=== PATIENT | male | born 2000 | race Caucasian/White ===

== ENCOUNTER 2019-06-15 17:31 | Emergency (ER) | payer BC ==
[2019-06-15 17:48] VITALS: BP 137/88; PULSE 84; O2SAT 97
--- NOTE | 2019-06-15 17:51 | ERPHSYRPT ---
- History of Present Illness Time Seen by Provider: 06/15/19 17:38 Source: patient, family, old records Exam Limitations: no limitations Patient Subjective Stated Complaint: states working today at [employer] in [employer] and got splinter in left hand while taking wire off a wooden spool. was unable to get it out. Triage Nursing Assessment: ambulated to room per self. skin w/d, color normal. has puncture wound to palm surface of left hand. no bleeding noted at this time. small dark area noted around puncture wound. 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 IT IS WOOD. LAST TDAP? NO FEVER/REDNESS/SWELLING/PUS. PMHX ASTHMA PSHX DENIES MEDS REVIEWED ALL NKDA DENIES TOB/ETOH/ILLICITS FHX NON CONTRIB EMPLOYED Allergies/Adverse Reactions: No Known Drug Allergies Allergy (Unverified 06/15/19 17:41) Home Medications: Cetirizine HCl [Zyrtec] 10 mg PO DAILY 06/15/19 [History] Montelukast Sodium 10 mg [Singulair 10 MG] 10 mg PO DAILY 06/15/19 [History] Hx Tetanus, Diphtheria Vaccination/Date Given: Yes Hx Influenza Vaccination/Date Given: No Hx Pneumococcal Vaccination/Date Given: No - Review of Systems Constitutional: No Symptoms, No Fever, No Chills, No Fatigue, No Lethargy, No Malaise, No Night Sweats, No Weakness, No Weight Loss Eyes: No Symptoms, No Discharge, No Eye Pain, No Eye Redness, No Itchy, No Photophobia, No Tearing, No Vision Changes, No Double Vision, No Foreign Body Sensation Ears, Nose, & Throat: No Symptoms, No Ear Pain, No Ear Discharge, No Hearing Changes, No Tinnitus, No Nose Congestion, No Nose Discharge, No Epistaxis, No Mouth Pain, No Mouth Swelling, No Throat Pain, No Throat Swelling, No Hoarse, No Painful Swallowing, No Stridor Respiratory: No Symptoms, No Cough, No Cyanosis, No Dyspnea, No Dyspnea on Exertion (DOLL), No Stridor, No Wheezing Cardiac: No Symptoms, No Chest Pain, No Edema, No Palpitations, No Syncope, No Orthopnea Abdominal/Gastrointestinal: No Symptoms, No Abdominal Pain, No Nausea, No Vomiting, No Diarrhea, No Constipation, No Hematemesis, No Hematochezia, No Melena, No Dysphagia, No Appetite Changes Genitourinary Symptoms: No Symptoms, No Dysuria, No Frequency, No Hematuria, No Hesitancy, No Incontinence, No Urgency, No Urinary Retention, No Flank Pain Musculoskeletal: No Symptoms, No Arthralgias, No Back Pain, No Neck Pain, No Deformity, No Fall, No Injury, No Joint Redness, No Joint Pain, No Joint Swelling, No Myalgias Skin: No Symptoms, Other (SPLINTER), No Cellulitis, No Decubiti, No Induration, No Pruritis, No Rash, No Skin Lesions, No Dryness Neurological: No Symptoms, No Dizziness, No Focal Weakness, No Gait Changes, No Headache, No Irritability, No Lethargy, No Paralysis, No Parasthesia, No Seizure , No Sensory Changes, No Speech Changes, No Tics, No Tremors, No Vertigo Psychological: No Symptoms, No Alcohol Abuse, No Drug Abuse, No Anxiety, No Depression, No Suicidal Ideations, No Homicidal Ideations, No Emotional Lability , No Hallucinations, No Memory Loss, No Mood Changes Endocrine: No Symptoms, No Polyuria, No Polydipsia, No Hair Changes, No Cold Intolerance, No Excessive Sweating, No Goiter Hematologic/Lymphatic: No Symptoms, No Anemia, No Blood Clots, No Easy Bleeding , No Gum Bleeding, No Easy Bruising, No Adenopathy Immunological/Allergic: No Symptoms All Other Systems: Reviewed and Negative - Past Medical History Pertinent Past Medical History: Yes Respiratory History: Asthma - Past Surgical History Past Surgical History: Yes Other Surgical History: tubes in ears - Social History Smoking Status: Never smoker Exposure to second hand smoke: No Drug Use: none Patient Lives Alone: No - Nursing Vital Signs Nursing Vital Signs: Initial Vital Signs Temperature 98 F 06/15/19 17:33 Pulse Rate 69 06/15/19 17:33 Respiratory Rate 20 06/15/19 17:33 Blood Pressure 137/88 06/15/19 17:33 O2 Sat by Pulse Oximetry 96 06/15/19 17:33 Pain Scale Pain Intensity 5 - Physical Exam General Appearance: no apparent distress, alert Eye Exam: PERRL/EOMI, eyes nml inspection, other (fundi normal andrew), No scleral icterus, No pale conjunctivae, No photophobia, No EOM palsy/anisocoria Ears, Nose, Throat Exam: normal ENT inspection, TMs normal, pharynx normal, TM abnormal (L), other (uvula midline, floor of mouth soft), No moist mucous membranes, No dry mucous membranes, No TM abnormal (R), No pharyngeal erythema, No tonsillar exudate Neck Exam: normal inspection, non-tender, supple, full range of motion, No meningismus, No mass, No Brudzinski, No Kernig's, No carotid bruit, No JVD, No limited range of motion, No lymphadenopathy, No midline tenderness, No thyromegaly Respiratory Exam: normal breath sounds, lungs clear, airway intact, No chest tenderness, No respiratory distress, No diminished breath sounds, No accessory muscle use, No prolonged expirations, No crackles/rales, No rhonchi, No wheezing , No stridor, No pleural rub Cardiovascular Exam: regular rate/rhythm, normal heart sounds, normal peripheral pulses, capillary refill <2 sec, No murmur, No friction rub, No gallop, No tachycardia, No bradycardia, No irregular, No capillary refill 2-3 sec, No capillary refill >3 sec, No edema, No pulse deficit Gastrointestinal/Abdomen Exam: soft, normal bowel sounds, No tenderness, No distention, No mass, No guarding, No ecchymosis, No pulsatile mass, No rebound, No hernia, No hepatomegaly, No organomegaly, No splenomegaly, No bruit Male Genitalia Exam: normal genitalia Rectal Exam: deferred Back Exam: normal inspection, normal range of motion, other (neg slr andrew, no sacral anesthesia, dtr 2/4 andrew patella), No CVA tenderness, No vertebral tenderness, No rash, No decreased range of motion, No muscle spasm, No point tenderness Extremity Exam: normal inspection, normal range of motion, pelvis stable, other (LEFT PALM WITH OBVIOUS FB AND TENTING NO PUS/ERYTHEMA/WARMTH), No amputations, No contusions, No calf tenderness, No deformities, No lacerations, No parasthesia, No paralysis, No inflammation, No joint swelling, No limited range of motion, No pedal edema, No swelling, No tenderness Neurologic Exam: alert, oriented x 3, cooperative, 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, normal mood/affect, nml cerebellar function, nml station & gait, sensation nml, No motor deficits, No sensory deficit, No disoriented, No confusion, No agitation, No uncooperative, No intoxicated appearance, No depressed mood/affect , No motor weakness, No facial droop, No slurred speech, No aphasia, No dysarthria, No abnormal gait, No abnormal cerebellar tests, No abnormal 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 II- XII, No EOM palsy Skin Exam: normal color, warm, dry, No rash, No petechiae, No jaundice, No abrasion, No cyanosis, No diaphoresis, No decubitus, No embolic lesions, No ecchymosis, No jaundice, No laceration, No mottled, No pale Lymphatic Exam: No adenopathy SpO2 Interpretation: normal SpO2: 97 O2 Delivery: Room Air - Course Nursing assessment & vital signs reviewed: Yes Ordered Tests: Active Orders 24 hr Category Date Time Status HAND (MINIMUM 3 VIEWS) Stat Exams 06/15/19 18:33 Taken Medication Summary Discontinued Medications Generic Name Dose Route Start Last Admin Trade Name Freq PRN Reason Stop Dose Admin Diphtheria/Tetanus/Acell Pertussis 0.5 ml 06/15/19 17:57 06/15/19 18:02 Adacel Vial IM 06/15/19 17:58 0.5 ml .ONCE ONE Administration Diphtheria/Tetanus/Acell Pertussis Confirm 06/15/19 18:00 Adacel Vial Administered 06/15/19 18:01 Dose 0.5 ml IM .STK-MED ONE Lidocaine/Epinephrine 5 ml 06/15/19 17:57 Xylocaine 1%/Epi [id number] Mdv 20 Ml IJ 06/15/19 17:58 STAT ONE - Progress Progress: improved Progress Note: 06/15/19 18:35 ER PRELIM XR NO FB IDENTIFIED CLEARLY PROCEDURE: SITE SIDE VERIFIED ANESTEHETIZED WITH 2 CC 1% EPI WITH LIDO 1 CM INCISION MADE OVER FB WOODEN SLIVER REMOVED IN ENTIRETY WELL TOLERATED WOUND IRRIGATED WITH NS UNDER HIGH PRESSURE 500 CC Counseled pt/family regarding: drug and/or alcohol abuse, lab results, diagnosis , need for follow-up, rad results, smoking cessation - Departure Departure Disposition: Home Clinical Impression: Foreign body of hand, left Condition: Good Critical Care Time: No Instructions: Removal of Foreign Body in Skin Additional Instructions: TO ER IF FEVER/REDNESS/SWELLING/PUS FROM WOUND KEEP WOUND CLEAN AND DRY WASH WITH SOAP AND WATER TYLENOL AND MOTRIN FOR DISCOMFORT TAKE MEDICINES DIRECTED WOUND CHECK WITH PRIMARY CARE OR URGENT CARE IN 2 DAYS Prescriptions: Cephalexin Mh 500 mg [Keflex 500 mg] 500 mg PO QID 10 Days #40 capsule
[2019-06-15] MEDS ORDERED: XYLOCAINE 1%/Epi 1:100000 MDV 20 ML IJ ONE (17:57)
[2019-06-15] MEDS ORDERED: Adacel Vial IM ONE ×2 (17:57→18:00)
--- NOTE | 2019-06-16 08:41 | XRAY ---
Indication: Splinter in palm of hand. Comparison: None 3 views of the left hand negative for radiopaque foreign body. Incidental small scaphoid and lunate bone islands. No other bony, articular, or soft tissue abnormalities.
== END 2019-06-15 18:58 | disposition home or self-care (01) ==
LOC: ED 17:31
DX: M79.5 Residual foreign body in soft tissue (principal); S60.552A Superficial foreign body of left hand, initial encounter; W45.8XXA Other foreign body or object entering through skin, initial encounter; Y93.89 Activity, other specified; Y92.89 Other specified places as the place of occurrence of the external cause; Y99.0 Civilian activity done for income or pay
CPT/HCPCS: 10120; 73130; 90471; 90715; 99284